=== PATIENT | female | born 1950 | race Caucasian/White ===

== ENCOUNTER 2018-10-11 08:28 | Inpatient (IN) | payer MEDICARE, BC ==
[2018-10-11] MEDS: CEFAZOLIN 2 GM/50 ML (PMX) 50 ML IVPB (09:00)
[2018-10-11] MEDS: TRANEXAMIC ACID 1GM/100ML(PMX) 100 ML IVPB ×2 (09:00→13:41)
[2018-10-11] MEDS: GABAPENTIN 300 MG CAP PO ×2 (09:08→20:47)
[2018-10-11] MEDS: DEXAMETHASONE 1 MG TAB PO (09:08)
[2018-10-11] MEDS ORDERED: LACTATED RINGER'S 1,000 ML IV (09:30)
[2018-10-11] MEDS ORDERED: TRANEXAMIC ACID 1GM/100ML(PMX) 200 ML (10:57)
[2018-10-11] MEDS ORDERED: BUPIVACAINE 0.5%/EPI (SDV) 30 ML INJ (10:57)
[2018-10-11] MEDS ORDERED: POLYMYXIN/BACITRACIN 1L IRRIG (10:57)
[2018-10-11] MEDS ORDERED: CA CHLORIDE 10% 10 ML SYRINGE (11:08)
[2018-10-11] MEDS ORDERED: THROMBIN (BOVINE) 5,000 UNIT VIAL TP (11:08)
[2018-10-11] MEDS ORDERED: PROPOFOL 20 ML (11:17)
[2018-10-11] MEDS ORDERED: SUCCINYLCHOLINE CHLORIDE 100 MG/5 ML SYG IV (11:17)
[2018-10-11] MEDS ORDERED: ROCURONIUM 50 MG INJ (11:17)
[2018-10-11] MEDS ORDERED: LIDOCAINE 2% (SDV) 5 ML INJ (11:17)
[2018-10-11] MEDS ORDERED: FENTAnyl 50 MCG/ML VIAL (11:18)
[2018-10-11] MEDS ORDERED: MIDAZOLAM 1 MG/ML 2 ML INJ (11:18)
[2018-10-11] MEDS ORDERED: ROPIVACAINE 0.5 % 30 ML VIAL (11:19)
[2018-10-11] MEDS ORDERED: DEXAMETHASONE 4 MG/ML 5 ML INJ (12:04)
[2018-10-11] MEDS ORDERED: ONDANSETRON 4 MG INJ (12:04)
[2018-10-11] MEDS ORDERED: FAMOTIDINE 20 MG INJ (12:05)
[2018-10-11] MEDS ORDERED: EPHEDrine 25 MG/5 ML SYG (12:08)
[2018-10-11] MEDS ORDERED: MEPERIDINE 25 MG INJ IV (12:30)
[2018-10-11] MEDS ORDERED: ONDANSETRON 4 MG INJ IV ×2 (12:30→13:00)
[2018-10-11] MEDS ORDERED: DIPHENHYDRAMINE 50 MG INJ IV ×2 (12:30→13:00)
[2018-10-11] MEDS ORDERED: FENTAnyl 50 MCG/ML VIAL IV (12:30)
[2018-10-11] MEDS ORDERED: EPHEDrine 25 MG/5 ML SYG IV (12:30)
[2018-10-11] MEDS ORDERED: HYDROmorphONE 1 MG/5 ML IV SYRINGE IV ×3 (12:30)
[2018-10-11] MEDS ORDERED: PROCHLORPERAZINE 10 MG INJ IV (12:30)
[2018-10-11] MEDS ORDERED: oxyCODONE 5 MG TAB PO ×3 (13:00)
[2018-10-11] MEDS ORDERED: HYDROmorphONE 1 MG/ML SYG IV (13:00)
[2018-10-11] MEDS ORDERED: MAGNESIUM HYDROXIDE 30ML CUP PO (13:00)
[2018-10-11] MEDS ORDERED: NACL 0.9% 3 ML SYG IV (13:00)
[2018-10-11] MEDS ORDERED: KETOROLAC 15 MG INJ IV (13:00)
[2018-10-11] MEDS ORDERED: ZOLPIDEM 5 MG TAB PO (13:00)
[2018-10-11] MEDS ORDERED: LOPERAMIDE 2 MG CAP PO (13:00)
[2018-10-11] MEDS ORDERED: GLYCOPYRROLATE 0.4 MG INJ ×2 (13:04→13:08)
[2018-10-11] MEDS ORDERED: NEOSTIGMINE 3 MG/3 ML SYRINGE ×2 (13:04→13:08)
[2018-10-11] MEDS: BUPIVACAINE 0.5% (SDV) 30 ML, morphine SULFATE (PF) 8 MG, EPINEPHrine 0.3 MG, KETOROLAC... IRR (13:29)
[2018-10-11] MEDS: POLYMYXIN/BACITRACIN 1L IRRIG (13:29)
[2018-10-11] MEDS: CEFAZOLIN 1 GM/50 ML (PMX) 50 ML IVPB ×2 (13:41→20:44)
[2018-10-11] MEDS: ACETAMINOPHEN 500 MG TAB PO ×2 (18:17→23:16)
[2018-10-11] MEDS: DEXAMETHASONE 2 MG TAB PO ×2 (18:17→23:16)
[2018-10-11] MEDS: SENNA/DOCUSATE NA (8.6MG/50MG) TAB PO (20:48)
[2018-10-12] MEDS: CEFAZOLIN 1 GM/50 ML (PMX) 50 ML IVPB (05:22)
[2018-10-12] MEDS: DEXAMETHASONE 2 MG TAB PO (05:22)
[2018-10-12] MEDS: ACETAMINOPHEN 500 MG TAB PO (05:23)
[2018-10-12] MEDS: SENNA/DOCUSATE NA (8.6MG/50MG) TAB PO (09:00)
== END 2018-10-12 10:35 | disposition home or self-care (01) | DRG 483 ==
LOC: SUR 08:28 → SDS 08:28 → SUR 12:59 → REC 13:00 → MS1 14:20
PROC: 0RRJ00Z Replacement of Right Shoulder Joint with Reverse Ball and Socket Synthetic Substitute, Open Approach (ICD-10-PCS; principal; 2018-10-11 10:30)
PROC: 0LS30ZZ Reposition Right Upper Arm Tendon, Open Approach (ICD-10-PCS; 2018-10-11 10:30)
DX: M19.211 Secondary osteoarthritis, right shoulder (principal); M19.011 Primary osteoarthritis, right shoulder; M75.101 Unspecified rotator cuff tear or rupture of right shoulder, not specified as traumatic; M67.813 Other specified disorders of tendon, right shoulder
CPT/HCPCS: 73030-RT; 86999; 88304; 88311; 97162